=== PATIENT | male | born 1945 | race Caucasian/White ===

== ENCOUNTER 2017-02-24 08:34 | Outpatient (CLI) | payer MEDICARE, OTHER ==
--- NOTE | 2017-02-24 13:56 | Nuclear Medicine Prelim Report ---
Exam: NM MYOCARDIAL PERFUSION STR/RST IMPRESSION: 1. Partially fixed and partially reversible inferior wall perfusion defect. 2. Normal left ventricular ejection fraction of 59%. 3. Normal segmental and global wall motion. 4. Normal left ventricular cavity size, no change with stress. RADIA The call report notification system was initiated by Dr. Braeden Camarena at 13:45 hrs on 02/24/17. The above findings were discussed with Dr. Priest by Dr. Braeden Camarena at 13:55 hrs on 02/24/17. SITE ID: [id number]
--- NOTE | 2017-02-24 13:59 | Nuclear Medicine Report ---
EXAM: SINGLE-ISOTOPE EXERCISE STRESS TEST. SINGLE-ISOTOPE AND ONE-DAY REST/STRESS MYOCARDIAL PERFUSION SCAN S WITH TOMOGRAPHIC IMAGING, QUANTITATIVE ANALYSIS, WALL MOTION ANALYSIS AND CALCULATION OF EJECTION F RACTION. EXAM DATE: 02/24/2017 01:31 PM. CLINICAL HISTORY: CHEST PAIN. COMPARISON: None available. TECHNIQUE: A rest myocardial perfusion scan was done with tomography after the intravenous administration of 9.7 mCi Tc-99m sestamibi. After an appropriate delay, a treadmill exercise stress was performed according to department protoco l. The patient exercised for 5 minutes and 30 seconds. The maximum heart rate was 155 bpm, which was 104% of the maximum predicted heart rate of 149 bpm. At approximately peak heart rate, 43.6 mCi of Tc -99m sestamibi was injected for stress myocardial perfusion scan. Motion correction was applied when appropriate. Gated tomographic images were obtained for wall motion analysis and computation of left ventricular e jection fraction. FINDINGS: There is a moderate inferior wall perfusion defect extending to the inferior apex. There is mild reversibility around the margins. Wall motion analysis demonstrates no focal wall motion abnormality. The left ventricular end-diastolic volume is 110 cc. The left ventricular end-systolic volume is 45 c c. The left ventricular ejection fraction is calculated to be 59%. IMPRESSION: 1. Partially fixed and partially reversible inferior wall perfusion defect. 2. Normal left ventricular ejection fraction of 59%. 3. Normal segmental and global wall motion. 4. Normal left ventricular cavity size, no change with stress. RADIA The call report notification system was initiated by Dr. Braeden Camarena at 13:45 hrs on 02/24/17. The above findings were discussed with Dr. Priest by Dr. Braeden Camarena at 13:55 hrs on 02/24/17. Referring Provider Line: [phone] SITE ID: [id number]
[2017-02-24 16:41] VITALS: BP 142/92
--- NOTE | 2017-02-25 03:33 | CARDIAC PROCEDURE NOTE ---
DATE OF SERVICE: 02/24/2017 00:00:00 PRIMARY CARE PHYSICIAN: Misael Priest DO PROCEDURE: Myocardial perfusion treadmill. PROCEDURE SYMPTOMS: Chest pain. CARDIAC RISK FACTORS: Include age, hypertension, and hyperlipidemia. The patient had a 2011 treadmill test. CURRENT SYMPTOMATOLOGY: The patient feels well today. CLINICAL HISTORY: A 71-year-old male without known coronary artery disease. INITIAL RESTING VITAL SIGNS: BP 142/92, heart rate 82, height 73 inches, weight 245 pounds, BMI 32.3. PROCEDURE AND FINDINGS: The patient's identity and date were verified. Consent signed. The patient performed treadmill exercise using a Kobe protocol , completing 5 minutes, 30 seconds and completing an estimated workload of 7.0 metabolic equivalents. At peak exercise, Cardiolite radioactive tracer was injected intravenously. The patient exercised for another 60 seconds after receiving the tracer. Maximal blood pressure was 168/98 mmHg with a heart rate of 140 beats per minute or 94% of maximum heart rate for age. The blood pressure response to exercise was within normal limits. The patient stopped because of feeling short of air, his legs were tiring, and he had "mild" chest pain that resolved over 1-2 minutes. The resting ECG demonstrated normal sinus rhythm with a right bundle branch abnormality. He developed marked ST elevation and T-wave inversion with exercise in leads V3-5.The ST elevation resolved with rest. No ST depression was seen. There were occasional PAC and PVC ectopy. FINAL IMPRESSION 1. Positive electrocardiogram for ischemia in the setting of vasodilator stress. 2. Positive stress test for angina. 3. Occasional premature ventricular contractions and premature atrial contractions. DISCUSSION AND RECOMMENDATIONS: Await myocardial perfusion report. JOB #: [id number] [facility] JOB #:[id number] MTDReyna
== END 2017-02-24 08:35 | disposition home or self-care (01) ==
LOC: DI 08:34
PROVIDERS: ATTEND Family Medicine
DX: I25.9 Chronic ischemic heart disease, unspecified (principal); I20.9 Angina pectoris, unspecified; I10 Essential (primary) hypertension; E78.5 Hyperlipidemia, unspecified; J43.9 Emphysema, unspecified; J84.10 Pulmonary fibrosis, unspecified
CPT/HCPCS: 71020; 78452; 93017; A9500

== ENCOUNTER 2017-02-24 08:39 | Outpatient (CLI) | payer MEDICARE, OTHER ==
--- NOTE | 2017-02-24 12:26 | XRAY Report ---
TWO-VIEW CHEST: 02/24/2017 CLINICAL INDICATION: Chest pain. COMPARISON: 11/03/2011 FINDINGS: Frontal and lateral views of the chest demonstrate a normal cardiac silhouette. Emphysema and fibrosis are stable. No new consolidation, effusion, or pneumothorax is present. IMPRESSION: STABLE EMPHYSEMA AND FIBROSIS. JOB #: [id number] EXT JOB #:[id number]
--- NOTE | 2017-02-24 13:48 | XRAY Preliminary Report ---
Exam: XR CHEST 2 VIEW PA/LAT IMPRESSION: Normal 2-view chest radiography. [facility] SITE ID: [id number]
== END 2017-02-24 08:40 | disposition home or self-care (01) ==
LOC: DI 08:39
PROVIDERS: ATTEND Family Medicine
DX: J43.9 Emphysema, unspecified (principal); J84.10 Pulmonary fibrosis, unspecified
CPT/HCPCS: 71020

== ENCOUNTER 2017-08-31 08:00 | Outpatient (CLI) | payer MEDICARE, OTHER ==
[2017-08-31 12:44] LABS: BASOPHILS # (AUTO) 0.1 10^3/uL (0.0-0.1); BASOPHILS % (AUTO) 0.7 %; EOSINOPHILS # (AUTO) 0.4 10^3/uL (0.0-0.7); EOSINOPHILS % (AUTO) 5.1 %; LYMPHOCYTES # (AUTO) 1.7 10^3/uL (1.5-3.5); LYMPHOCYTES % (AUTO) 19.3 %; MEAN CORPUSCULAR HEMOGLOBIN 29.4 pg (27.0-31.0); MEAN CORPUSCULAR HGB CONC 33.5 g/dL (32.0-36.0); MEAN CORPUSCULAR VOLUME 87.7 fL (80.0-94.0); MONOCYTES # (AUTO) 0.6 10^3/uL (0.0-1.0); MONOCYTES % (AUTO) 7.3 %; NEUTROPHILS # (AUTO) 5.8 10^3/uL (1.5-6.6); NEUTROPHILS % (AUTO) 67.6 %; PLT - PLATELET COUNT 200 10^3/uL (130-450); RED BLOOD COUNT 4.76 10^6/uL (4.70-6.10); RED CELL DISTRIBUTION WIDTH 13.9 % (12.0-15.0); WHITE BLOOD COUNT 8.6 x10^3/uL (4.8-10.8)
[2017-08-31 12:48] LABS: ALBUMIN 3.9 g/dL (3.2-5.5); ALBUMIN/GLOBULIN RATIO 1.2 (1.0-2.2); ALKALINE PHOSPHATASE 59 IU/L (42-121); ALT ALANINE AMINOTRANSFERASE 35 IU/L (10-60); AST ASPARTATE AMINOTRANSFERASE 29 IU/L (10-42); BILIRUBIN,TOTAL 0.7 mg/dL (0.2-1.0); BUN - BLOOD UREA NITROGEN 22 mg/dL (6-20); CALCIUM 8.8 mg/dL (8.5-10.3); CARBON DIOXIDE - CO2 27 mmol/L (21-32); CHLORIDE 101 mmol/L (101-111); CHOL/HDL RATIO 2.7 (<5.0); CHOLESTEROL 119 mg/dL; CREATININE 0.7 mg/dL (0.6-1.2); GFR - MDRD 111 (>89); GLUCOSE 86 mg/dL (70-100); HDL CHOLESTEROL 44 mg/dL; LDL CHOLESTEROL,CALCULATED 56 mg/dL; LDL/HDL RATIO 1.3 (<3.6); SODIUM 136 mmol/L (135-145); TOTAL PROTEIN 7.1 g/dL (6.7-8.2); VLDL CHOLESTEROL 19 mg/dL
== END 2017-08-31 08:01 | disposition home or self-care (01) ==
LOC: LAB.WCP 08:00
PROVIDERS: ATTEND Family Medicine
DX: I25.10 Atherosclerotic heart disease of native coronary artery without angina pectoris (principal)
CPT/HCPCS: 36415; 80053; 80061; 83721; 85025

== ENCOUNTER 2017-12-14 07:33 | Outpatient (CLI) | payer MEDICARE, OTHER ==
[2017-12-14 10:31] LABS: BASOPHILS # (AUTO) 0.1 10^3/uL (0.0-0.1); BASOPHILS % (AUTO) 0.7 %; EOSINOPHILS # (AUTO) 0.3 10^3/uL (0.0-0.7); EOSINOPHILS % (AUTO) 4.4 %; HGB - HEMOGLOBIN 13.2 g/dL (14.0-18.0); LYMPHOCYTES # (AUTO) 1.2 10^3/uL (1.5-3.5); LYMPHOCYTES % (AUTO) 17.2 %; MEAN CORPUSCULAR HEMOGLOBIN 29.8 pg (27.0-31.0); MEAN CORPUSCULAR HGB CONC 33.7 g/dL (32.0-36.0); MEAN CORPUSCULAR VOLUME 88.3 fL (80.0-94.0); MEAN PLATELET VOLUME 8.1 fL (7.4-11.4); MONOCYTES # (AUTO) 0.6 10^3/uL (0.0-1.0); MONOCYTES % (AUTO) 8.5 %; NEUTROPHILS # (AUTO) 4.9 10^3/uL (1.5-6.6); NEUTROPHILS % (AUTO) 69.2 %; PLT - PLATELET COUNT 203 10^3/uL (130-450); RED BLOOD COUNT 4.44 10^6/uL (4.70-6.10); WHITE BLOOD COUNT 7.1 x10^3/uL (4.8-10.8)
[2017-12-14 10:51] LABS: CALCIUM 8.9 mg/dL (8.5-10.3); CREATININE 0.9 mg/dL (0.6-1.2)
== END 2017-12-14 07:34 | disposition home or self-care (01) ==
LOC: LAB.F 07:33
PROVIDERS: ATTEND Family Medicine
DX: R31.9 Hematuria, unspecified (principal)
CPT/HCPCS: 36415; 80048; 85025

== ENCOUNTER 2017-12-16 11:32 | Outpatient (CLI) | payer MEDICARE, OTHER ==
[2017-12-16] MEDS ORDERED: IOPAMIDOL-300 100 ML VIAL ONE (11:39)
[2017-12-16] MEDS ORDERED: IOPAMIDOL-300 100 ML VIAL IVP ONE (12:38)
--- NOTE | 2017-12-16 16:36 | CT Report ---
Reason: HEMATURIA Procedure Date: 12/16/2017 Accession Number: [id number] / [id number] Procedure: CT - IVP CPT Code: FULL RESULT: EXAM: CT ABDOMEN AND PELVIS WITHOUT AND WITH CONTRAST (CT IVP) EXAM DATE: 12/16/2017 12:49 PM. CLINICAL HISTORY: HEMATURIA. COMPARISONS: None. TECHNIQUE: Routine helical imaging was performed through the kidneys, ureters and bladder in the precontrast and post/delayed phase. IV Contrast: 100 cc Isovue-300. Reconstructions: Coronal and sagittal. In accordance with CT protocol optimization, one or more of the following dose reduction techniques were utilized for this exam: automated exposure control, adjustment of mA and/or KV based on patient size, or use of iterative reconstructive technique. FINDINGS: ABDOMEN: Right Kidney/Ureter: 4 mm calculus dependently in the renal pelvis and 2 mm calculus at the upper pole. Single ureter with normal anatomic course. No hydronephrosis. No urothelial lesions identified. No renal mass. Left Kidney/Ureter: Limited opacification of the proximal left ureter. No calculi. Single ureter with normal anatomic course. No hydronephrosis. No urothelial lesions identified. No renal mass. Bladder: 1.6 cm left bladder diverticulum is present. No obvious lesions or masses. No abnormal thickening seen. Lung Bases: Incompletely included lower lungs are grossly clear. Heart size is within normal limits. And completely visualize severe coronary artery calcifications. No basilar effusions. Liver: Unremarkable aside from a left hepatic lobe cyst and a tiny punctate likely cyst in the right hepatic lobe. Gallbladder/Bile Ducts: Small calcified gallstone layering dependently. Biliary tree is normal caliber. Spleen: Unremarkable. Pancreas: Unremarkable. Adrenal Glands: Unremarkable. Peritoneum/Mesentery/Bowel: No free intraabdominal fluid, free air, or collection. No intestinal obstruction or inflammation. Severe colonic diverticulosis is present, worse in the sigmoid. The appendix is within normal limits. Lymph nodes: No mesenteric, periportal, or retroperitoneal lymphadenopathy. Retroperitoneum: Abdominal aorta is nonaneurysmal. Portal vein is patent. Hepatic veins are patent. PELVIS: Prostate ispresent. No pelvic lymphadenopathy. Surgical clips in the right groin. No free intrapelvic fluid. Bones: No suspicious osseous lesions. IMPRESSION: No CT evidence for urothelial lesions. A couple nonobstructing right renal calculi. No ureteric calculi or hydronephrosis. Cholelithiasis. Partial visualization of severe coronary artery calcifications. RADIA
== END 2017-12-16 11:33 | disposition home or self-care (01) ==
LOC: DI 11:32
PROVIDERS: ATTEND Family Medicine
DX: R31.9 Hematuria, unspecified (principal); N20.0 Calculus of kidney; K80.20 Calculus of gallbladder without cholecystitis without obstruction
CPT/HCPCS: 74178; Q9967

== ENCOUNTER 2017-12-30 08:00 | Outpatient (CLI) | payer MEDICARE, OTHER | END 2017-12-30 08:01 | disposition home or self-care (01) | LOC: LAB.R 08:00 | PROVIDERS: ATTEND Family Medicine | DX: D64.9 Anemia, unspecified (principal) | CPT/HCPCS: 82270 ==

== ENCOUNTER 2018-07-20 07:49 | Outpatient (CLI) | payer MEDICARE, OTHER ==
[2018-07-20 11:32] LABS: BASOPHILS # (AUTO) 0.1 10^3/uL (0.0-0.1); BASOPHILS % (AUTO) 1.6 %; EOSINOPHILS # (AUTO) 0.2 10^3/uL (0.0-0.7); EOSINOPHILS % (AUTO) 3.9 %; LYMPHOCYTES # (AUTO) 1.4 10^3/uL (1.5-3.5); LYMPHOCYTES % (AUTO) 21.8 %; MEAN CORPUSCULAR HEMOGLOBIN 29.4 pg (27.0-31.0); MEAN CORPUSCULAR HGB CONC 33.1 g/dL (32.0-36.0); MEAN CORPUSCULAR VOLUME 88.6 fL (80.0-94.0); MEAN PLATELET VOLUME 8.8 fL (7.4-11.4); MONOCYTES # (AUTO) 0.5 10^3/uL (0.0-1.0); NEUTROPHILS % (AUTO) 64.7 %; PLT - PLATELET COUNT 183 10^3/uL (130-450); RED BLOOD COUNT 4.78 10^6/uL (4.70-6.10); RED CELL DISTRIBUTION WIDTH 13.9 % (12.0-15.0); WHITE BLOOD COUNT 6.2 x10^3/uL (4.8-10.8)
[2018-07-20 11:48] LABS: % IRON SATURATION 41 % (20-50); ALBUMIN 4.1 g/dL (3.2-5.5); ALBUMIN/GLOBULIN RATIO 1.6 (1.0-2.2); ALKALINE PHOSPHATASE 54 IU/L (42-121); ALT ALANINE AMINOTRANSFERASE 29 IU/L (10-60); AST ASPARTATE AMINOTRANSFERASE 31 IU/L (10-42); BILIRUBIN,TOTAL 0.9 mg/dL (0.2-1.0); BUN - BLOOD UREA NITROGEN 23 mg/dL (6-20); CALCIUM 8.9 mg/dL (8.5-10.3); CARBON DIOXIDE - CO2 27 mmol/L (21-32); CHLORIDE 103 mmol/L (101-111); CHOL/HDL RATIO 2.5 (<5.0); CHOLESTEROL 155 mg/dL; CREATININE 0.8 mg/dL (0.6-1.2); GFR - MDRD 95 (>89); GLUCOSE 106 mg/dL (70-100); HDL CHOLESTEROL 63 mg/dL; IRON 122 ug/dL (45-182); LDL CHOLESTEROL,CALCULATED 84 mg/dL; LDL/HDL RATIO 1.3 (<3.6); SODIUM 138 mmol/L (135-145); TOTAL IRON BINDING CAPACITY 300 ug/dL (250-450); TOTAL PROTEIN 6.7 g/dL (6.7-8.2); TRANSFERRIN 214 mg/dL (180-329); VLDL CHOLESTEROL 8 mg/dL
[2018-07-20 11:58] LABS: FERRITIN 276.8 ng/mL (23.9-336.2)
== END 2018-07-20 07:50 | disposition home or self-care (01) ==
LOC: LAB.F 07:49
PROVIDERS: ATTEND Family Medicine
DX: D64.9 Anemia, unspecified (principal); I25.10 Atherosclerotic heart disease of native coronary artery without angina pectoris
CPT/HCPCS: 36415; 80053; 80061; 82607; 82728; 82746; 83540; 83721; 84466; 85025

== ENCOUNTER 2020-02-06 07:00 | Outpatient (CLI) | payer MEDICARE, OTHER ==
[2020-02-06 12:16] LABS: BASOPHILS % (AUTO) 0.5 %; EOSINOPHILS # (AUTO) 0.3 10^3/uL (0.0-0.7); EOSINOPHILS % (AUTO) 4.1 %; HGB - HEMOGLOBIN 14.4 g/dL (14.0-18.0); LYMPHOCYTES # (AUTO) 1.4 10^3/uL (1.5-3.5); LYMPHOCYTES % (AUTO) 18.6 %; MEAN CORPUSCULAR HEMOGLOBIN 30.1 pg (27.0-31.0); MEAN CORPUSCULAR HGB CONC 32.7 g/dL (32.0-36.0); MEAN CORPUSCULAR VOLUME 92.3 fL (80.0-94.0); MEAN PLATELET VOLUME 10.9 fL (7.4-11.4); MONOCYTES # (AUTO) 0.7 10^3/uL (0.0-1.0); MONOCYTES % (AUTO) 8.8 %; NEUTROPHILS # (AUTO) 5.2 10^3/uL (1.5-6.6); NEUTROPHILS % (AUTO) 67.7 %; PLT - PLATELET COUNT 182 10^3/uL (130-450); RED BLOOD COUNT 4.78 10^6/uL (4.70-6.10); WHITE BLOOD COUNT 7.7 x10^3/uL (4.8-10.8)
[2020-02-06 12:30] LABS: ALBUMIN 4.1 g/dL (3.2-5.5); ALBUMIN/GLOBULIN RATIO 1.4 (1.0-2.2); ALKALINE PHOSPHATASE 57 IU/L (42-121); ALT ALANINE AMINOTRANSFERASE 24 IU/L (10-60); AST ASPARTATE AMINOTRANSFERASE 22 IU/L (10-42); BILIRUBIN,TOTAL 0.7 mg/dL (0.2-1.0); BUN - BLOOD UREA NITROGEN 26 mg/dL (6-20); CALCIUM 9.1 mg/dL (8.5-10.3); CARBON DIOXIDE - CO2 24 mmol/L (21-32); CHLORIDE 108 mmol/L (101-111); CHOL/HDL RATIO 3.2 (<5.0); CHOLESTEROL 161 mg/dL; CREATININE 0.6 mg/dL (0.6-1.2); GLUCOSE 96 mg/dL (70-100); HDL CHOLESTEROL 50 mg/dL; LDL CHOLESTEROL,CALCULATED 71 mg/dL; LDL/HDL RATIO 1.4 (<3.6); SODIUM 140 mmol/L (135-145); TOTAL PROTEIN 7.1 g/dL (6.7-8.2); URIC ACID 4.5 mg/dL (2.6-7.2); VLDL CHOLESTEROL 40 mg/dL
[2020-02-06 13:46] LABS: HEMOGLOBIN A1c% 5.7 % (4.27-6.07)
[2020-02-06 16:28] LABS: RHEUMATOID FACTOR NEGATIVE (Negative)
--- NOTE | 2020-02-06 17:24 | XRAY Report ---
PROCEDURE: Hip 1 View LT INDICATIONS: LEFT HIP PAIN TECHNIQUE: Mild right hip arthritis. Moderate left hip osteoarthritis. views of the hip were acquire d. COMPARISON: None FINDINGS: Bones: No fractures or dislocations. No suspicious bony lesions. The visualized pelvic ring appear s intact. Soft tissues: No suspicious soft tissue calcifications or masses. Surgical clips project over the r ight groin. IMPRESSION: Moderate left hip and mild right hip osteoarthritis. Reviewed by: Gema Pinzon MD, PhD on 02/06/2020 5:23 PM PST Approved by: Gema Pinzon MD, PhD on 02/06/2020 5:23 PM PST Station ID: [id number]
== END 2020-02-06 23:59 | disposition home or self-care (01) ==
LOC: DI.WCP 07:00
PROVIDERS: ATTEND Family Medicine
DX: M16.0 Bilateral primary osteoarthritis of hip (principal); I25.10 Atherosclerotic heart disease of native coronary artery without angina pectoris; G62.9 Polyneuropathy, unspecified; E66.9 Obesity, unspecified; M25.50 Pain in unspecified joint; E78.2 Mixed hyperlipidemia
CPT/HCPCS: 36415; 80053; 80061; 82607; 83036; 83721; 84443; 84550; 85025; 85651; 86140; 86200; 86430

== ENCOUNTER 2020-12-10 16:28 | Outpatient (CLI) | payer MEDICARE, OTHER | END 2020-12-10 16:29 | disposition home or self-care (01) | LOC: DI.N 16:28 | PROVIDERS: ATTEND Family Medicine | DX: M25.551 Pain in right hip (principal); M25.512 Pain in left shoulder; M79.602 Pain in left arm ==

== ENCOUNTER 2020-12-10 17:43 | Outpatient (CLI) | payer MEDICARE, OTHER ==
--- NOTE | 2020-12-10 19:46 | XRAY Report ---
PROCEDURE: Humerus LT INDICATIONS: ARM PAIN LEFT TECHNIQUE: 2 views of the humerus were acquired. COMPARISON: None FINDINGS: Bones: No fractures or dislocations. No suspicious bony lesions. Soft tissues: No suspicious soft tissue calcifications. IMPRESSION: No humeral fracture or dislocation. Reviewed by: Matthieu Meneses MD on 12/10/2020 7:45 PM PDT Approved by: Matthieu Meneses MD on 12/10/2020 7:45 PM PDT Station ID: [id number]
--- NOTE | 2020-12-10 19:46 | XRAY Report ---
PROCEDURE: Shoulder 2 View LT INDICATIONS: SHOULDER JOINT PAIN, LEFT TECHNIQUE: 2 views of the shoulder were acquired. COMPARISON: None. FINDINGS: Bones: No fractures or dislocations. Moderate acromioclavicular joint and glenohumeral joint osteoph ytic changes are seen. No suspicious bony lesions. Visualized ribs appear intact. Soft tissues: No suspicious soft tissue calcifications. IMPRESSION: Moderate left shoulder joint osteoarthritis. No acute shoulder fracture or dislocation. Reviewed by: Matthieu Meneses MD on 12/10/2020 7:44 PM PDT Approved by: Matthieu Meneses MD on 12/10/2020 7:44 PM PDT Station ID: [id number]
--- NOTE | 2020-12-10 19:47 | XRAY Report ---
PROCEDURE: Hip w/Pelvis 2-3V RT INDICATIONS: HIP PAIN RIGHT TECHNIQUE: AP pelvis with lateral view(s) of the right hip(s). COMPARISON: None. FINDINGS: Bones: No fractures or dislocations. Moderate right worse than left bilateral hip joint osteoarthri tis is seen. No evidence of avascular necrosis of femoral head. Pelvic ring appears intact. No suspi cious bony lesions. Soft tissues: The visualized bowel gas pattern is normal. No suspicious soft tissue calcifications. IMPRESSION: Moderate right worse than left bilateral hip joint osteoarthritis. No acute hip fracture or dislocation. No evidence of avascular necrosis. Reviewed by: Matthieu Meneses MD on 12/10/2020 7:45 PM PDT Approved by: Matthieu Meneses MD on 12/10/2020 7:45 PM PDT Station ID: [id number]
== END 2020-12-10 17:44 | disposition home or self-care (01) ==
LOC: DI 17:43
PROVIDERS: ATTEND Family Medicine
DX: M79.602 Pain in left arm (principal); M16.0 Bilateral primary osteoarthritis of hip; M19.012 Primary osteoarthritis, left shoulder

== ENCOUNTER 2021-01-26 14:13 | Outpatient (CLI) | payer MEDICARE, OTHER ==
--- NOTE | 2021-01-26 17:15 | XRAY Report ---
PROCEDURE: Lumbar Spine 2 View INDICATIONS: BACK PAIN,LUMBAR TECHNIQUE: 3 views of the lumbar spine were acquired. COMPARISON: None. FINDINGS: Bones: 5 [id number] vertebrae are present. There is normal bony alignment. There is mild conve x-right curvature of the lumbar spine. No vertebral body compression fractures. No suspicious bony l esions. Mild degenerative changes noted throughout the lumbar spine. Mild L4-L5 and L5-S1 facet arthr opathy. Soft tissues: Overlying bowel gas pattern is normal. No suspicious soft tissue calcifications. IMPRESSION: 1. Multilevel degenerative disc disease. 2. Multilevel facet atrophy. 3. No fracture. No acute osseous lesion. If there is continued clinical concern for pathology, then M RI should be considered for further evaluation. Reviewed by: Gema Pinzon MD, PhD on 01/26/2021 4:13 PM ELKE Approved by: Gema Pinzon MD, PhD on 01/26/2021 4:13 PM ELKE Station ID: [id number]
== END 2021-01-26 14:14 | disposition home or self-care (01) ==
LOC: DI 14:13
PROVIDERS: ATTEND Family Medicine
DX: M54.50 Low back pain, unspecified (principal); M51.37 Other intervertebral disc degeneration, lumbosacral region

== ENCOUNTER 2021-07-27 06:47 | Outpatient (CLI) | payer MEDICARE, OTHER ==
--- NOTE | 2021-07-27 08:31 | Ultrasound Report ---
PROCEDURE: Retroperitoneal Limited INDICATIONS: AAA TECHNIQUE: Real-time scanning was performed of the retroperitoneal organs, with image documentation. COMPARISON: None. FINDINGS: There is calcified plaque throughout the abdominal aorta. The proximal aorta measures 2.7 x 2.4 cm. The mid aorta measures 2.2 x 2.1 cm The distal aorta measures 3.0 x 3.0 cm. The right common iliac artery measures 1.4 x 1.5 cm. The left common iliac artery measures 1.5 x 1.6 cm. IMPRESSION: Ectasia of the distal infrarenal abdominal aorta measuring 3.0 x 3.0 cm. Reviewed by: Dong Malhotra on 07/27/2021 8:29 AM PDT Approved by: Dong Malhotra on 07/27/2021 8:29 AM PDT Station ID: [id number]
== END 2021-07-27 06:48 | disposition home or self-care (01) ==
LOC: DI 06:47
PROVIDERS: ATTEND Family Medicine
DX: I71.4 Abdominal aortic aneurysm, without rupture (principal)

== ENCOUNTER 2022-06-28 14:41 | Outpatient (CLI) | payer MEDICARE, OTHER ==
--- NOTE | 2022-06-28 18:09 | Ultrasound Report ---
PROCEDURE: Carotid Doppler Complete INDICATIONS: CAROTID ARTERY STENOSIS TECHNIQUE: Color and pulse Doppler interrogation was performed of both carotid systems, with image documentation and velocity measurements. COMPARISON: None. FINDINGS: Right side: Brachial blood pressure: 146/76 mm Hg. Common carotid artery peak systolic velocity: 76 cm/sec. Internal carotid artery peak systolic velocity: 145 cm/sec. Internal carotid artery end diastolic velocity: 50 cm/sec. External carotid artery peak systolic velocity: 62 cm/sec. ICA/CCA peak systolic ratio: 1.6 . Alexandre scale imaging description: Moderate atherosclerotic plaque Percent internal carotid artery stenosis: Greater than 50 . Vertebral artery: Not well visualized Left side: Brachial blood pressure: 154/84 mm Hg. Common carotid artery peak systolic velocity: 74 cm/sec. Internal carotid artery peak systolic velocity: 116 cm/sec. Internal carotid artery end diastolic velocity: 36 cm/sec. External carotid artery peak systolic velocity: Not well visualized ICA/CCA peak systolic ratio: 1.0 . Alexandre scale imaging description: Atherosclerotic plaque Percent internal carotid artery stenosis: Less than 50 . Vertebral artery: Flow direction is antegrade. IMPRESSION: 1. Ratios and waveforms are consistent with a 50-69% stenosis in the right proximal ICA and less than 2% stenosis on the left 2. Nonvisualized left ECA and right vertebral artery The estimate of stenosis included in the report of the imaging study was calculated using the NASCET method Reviewed by: Cholo Villegas MD on 06/28/2022 5:07 PM ELKE Approved by: Cholo Villegas MD on 06/28/2022 5:07 PM ELKE Station ID: [id number]
== END 2022-06-28 14:42 | disposition home or self-care (01) ==
LOC: DI 14:41
PROVIDERS: ATTEND Nurse Practitioner Family
DX: R55 Syncope and collapse (principal); I65.23 Occlusion and stenosis of bilateral carotid arteries
CPT/HCPCS: 93880

== ENCOUNTER 2022-07-02 07:31 | Outpatient (CLI) | payer MEDICARE, OTHER ==
[2022-07-02] MEDS ORDERED: iohexoL-300 100 ML VIAL ONE (07:39)
[2022-07-02 07:57] LABS: CREATININE 0.7 mg/dL (0.6-1.2)
[2022-07-02] MEDS ORDERED: iohexoL-300 100 ML VIAL IVP ONE (09:34)
--- NOTE | 2022-07-02 11:01 | CT Report ---
PROCEDURE: ANGIO HEAD W/WO INDICATIONS: CAROTID ARTERY STENOSIS CONTRAST: 80ml omni 300 TECHNIQUE: Precontrast 4.5 mm thick angled axial sections acquired from the foramen magnum to the vertex. Afte r the administration of intravenous contrast, 1 mm thick sections acquired through the [place] of [place] is. Postcontrast 4.5 mm thick sections then re-acquired from the foramen magnum to the vertex. 3-di mensional wtwjsld-sblkleejt-mksgnllgbi (MIP) and/or volume rendering reformats were acquired of the c entral intracranial vasculature. For radiation dose reduction, the following was used: automated ex posure control, adjustment of mA and/or kV according to patient size. COMPARISON: CTA neck 07/02/2022, ultrasound carotid 11/03/2021 FINDINGS: Image quality: Excellent. Anterior circulation: Intracranial internal carotid arteries are normal in size and flow. The flow within the paired anterior cerebral arteries is normal and symmetric. The flow within the middle cer ebral arteries is normal and symmetric. The anterior communicating artery is seen. No aneurysms are seen. Posterior circulation: There is a left vertebral artery dominance. Visualized portions of the verteb ral arteries demonstrate normal caliber, and join to form a normal appearing basilar artery. Flow wi thin the posterior cerebral arteries is normal and symmetric. No aneurysms are seen. The ventricular system and cortical sulci demonstrate atrophy, consistent for patient's stated age. There are areas of hypodensity in the periventricular and subcortical white matter. There is no acut e intra or extra-axial fluid collection. No acute hemorrhage, mass lesion or midline shift. Brainst em is unremarkable. Globes are symmetrical. Sinuses are aerated. Osseous structures are intact. IMPRESSION: 1. No acute intracranial process. 2. Mild to moderate atrophy and chronic microvascular ischemic changes. 3. No areas of hemodynamically significant stenosis, vascular occlusion or aneurysmal dilation within the anterior or posterior circulation. Reviewed by: Federica Johnston MD on 07/02/2022 11:00 AM PDT Approved by: Federica Johnston MD on 07/02/2022 11:00 AM PDT Station ID: [id number]
--- NOTE | 2022-07-02 11:17 | CT Report ---
PROCEDURE: ANGIO NECK W INDICATIONS: CAROTID ARTERY STENOSIS CONTRAST: 80ml omni 300 TECHNIQUE: After the administration of intravenous contrast, 1.5 mm axial sections acquired from the aortic arch to the [place] of [place]. Coronal 3-D maximum intensity projection (MIP) and/or volume rendering ref ormats were then performed. For radiation dose reduction, the following was used: automated exposur e control, adjustment of mA and/or kV according to patient size. COMPARISON: CTA head 07/02/2022, ultrasound carotid 11/03/2021 FINDINGS: Image quality: Motion is present during portions of the exam, limiting areas of fine detail evaluatio n. Carotid system: The great vessels demonstrate a conventional anatomy as they arise from the aortic a rch. The origins of the common carotid arteries appear patent. The common carotid arteries demonstr ate normal calibers and courses. The bifurcation regions appear normal bilaterally. There is prominent calcification at the origin of the left internal carotid artery. The greatest degr ee of stenosis is approximately 5 mm from the origin measuring approximately 68%. Immediately distal, there is a longer segment area of narrowing measuring approximately 1.1 cm demonstrating approximate ly 50% narrowing. Calcifications are also present at the origin and proximal aspect of the right inte rnal carotid artery. There is a long segment of stenosis measuring approximately 1.8 cm extending fro m the origin measuring approximately 55% stenosis. Posterior circulation: There is a left vertebral artery dominance. The origins of the vertebral hailey shravan aren't secured secondary to motion. The more superior portions of the vertebral arteries demonst rate normal course and caliber. They join to form a normal appearing basilar artery. Soft tissues: Visualized neck soft tissues demonstrate no suspicious abnormalities. The thyroid is normal in size and there are no incidental findings. Bones: No suspicious bony lesions. Visualized cervical spine appears normally aligned. IMPRESSION: Prominent calcification at the origin of the internal carotid arteries bilaterally appearing more pro minent on the left with greatest stenosis measuring 68%. Approximately 55% stenosis noted on the righ t. Origin of the vertebral arteries is obscured secondary to motion. The estimate of stenosis included in the report of the imaging study was calculated using the NASCET method CLINICAL RECOMMENDATION STATEMENTS: In patients <35 years with an ITN detected on CT, MRI, or extrathyroidal ultrasound, the Committee re commends further evaluation with dedicated thyroid ultrasound if the nodule is "e1 cm and has no susp icious imaging features, and if the patient has normal life expectancy. In patients "e35 years with an ITN detected on CT, MRI, or extrathyroidal ultrasound, the Committee r ecommends further evaluation with dedicated thyroid ultrasound if the nodule is "e1.5 cm and has no s uspicious imaging features, and if the patient has normal life expectancy. (ACR, 2014) Reviewed by: Federica Johnston MD on 07/02/2022 11:15 AM PDT Approved by: Federica Johnston MD on 07/02/2022 11:15 AM PDT Station ID: [id number]
== END 2022-07-02 07:32 | disposition home or self-care (01) ==
LOC: LAB 07:31
PROVIDERS: ATTEND Family Medicine
DX: I65.29 Occlusion and stenosis of unspecified carotid artery (principal); I65.23 Occlusion and stenosis of bilateral carotid arteries; G31.89 Other specified degenerative diseases of nervous system; I67.82 Cerebral ischemia
CPT/HCPCS: 36415; 70496; 70498; 82565; Q9967

== ENCOUNTER 2022-07-14 12:18 | Outpatient (CLI) | payer MEDICARE, OTHER | END 2022-07-14 12:19 | disposition home or self-care (01) | LOC: DI 12:18 | PROVIDERS: ATTEND Nurse Practitioner Family | DX: I65.29 Occlusion and stenosis of unspecified carotid artery (principal); R55 Syncope and collapse | CPT/HCPCS: 93306 ==

== ENCOUNTER 2022-08-11 13:12 | Outpatient (CLI) | payer MEDICARE, OTHER | END 2022-08-11 13:13 | disposition home or self-care (01) | LOC: MAC.INF 13:12 | PROVIDERS: ATTEND Nurse Practitioner Family | DX: I65.29 Occlusion and stenosis of unspecified carotid artery (principal); R55 Syncope and collapse | CPT/HCPCS: 93246 ==

== ENCOUNTER 2022-09-02 10:30 | Outpatient (CLI) | payer MEDICARE, OTHER | END 2022-09-02 10:31 | disposition home or self-care (01) | LOC: MAC.INF 10:30 | PROVIDERS: ATTEND Nurse Practitioner Family | DX: I45.4 Nonspecific intraventricular block (principal); I44.0 Atrioventricular block, first degree; I47.1 Supraventricular tachycardia; I45.89 Other specified conduction disorders; I49.1 Atrial premature depolarization; I49.3 Ventricular premature depolarization; I65.29 Occlusion and stenosis of unspecified carotid artery | CPT/HCPCS: 93248 ==

== ENCOUNTER 2023-04-11 09:42 | Emergency (ER) | payer MEDICARE, OTHER ==
[2023-04-11 09:59] LABS: BASOPHILS % (AUTO) 0.5 %; EOSINOPHILS # (AUTO) 0.2 10^3/uL (0.0-0.7); EOSINOPHILS % (AUTO) 2.2 %; HCT - HEMATOCRIT 44.1 % (42.0-52.0); HGB - HEMOGLOBIN 14.4 g/dL (14.0-18.0); LYMPHOCYTES # (AUTO) 1.4 10^3/uL (1.5-3.5); LYMPHOCYTES % (AUTO) 18.7 %; MEAN CORPUSCULAR HEMOGLOBIN 29.7 pg (27.0-31.0); MEAN CORPUSCULAR HGB CONC 32.7 g/dL (32.0-36.0); MEAN CORPUSCULAR VOLUME 90.9 fL (80.0-94.0); MONOCYTES # (AUTO) 0.6 10^3/uL (0.0-1.0); MONOCYTES % (AUTO) 8.5 %; NEUTROPHILS # (AUTO) 5.1 10^3/uL (1.5-6.6); NEUTROPHILS % (AUTO) 69.8 %; PLT - PLATELET COUNT 176 10^3/uL (130-450); RED BLOOD COUNT 4.85 10^6/uL (4.70-6.10); RED CELL DISTRIBUTION WIDTH 12.8 % (12.0-15.0); WHITE BLOOD COUNT 7.3 x10^3/uL (4.8-10.8)
[2023-04-11 10:18] LABS: ALBUMIN 4.3 g/dL (3.2-5.5); ALBUMIN/GLOBULIN RATIO 1.7 (1.0-2.2); BILIRUBIN,TOTAL 0.9 mg/dL (0.2-1.0); CALCIUM 9.1 mg/dL (8.5-10.3); CREATININE 0.7 mg/dL (0.6-1.3); POTASSIUM 4.1 mmol/L (3.5-4.5); TOTAL PROTEIN 6.8 g/dL (6.4-8.9)
[2023-04-11] MEDS ORDERED: SODIUM CHLORIDE 0.9% 1,000 ML IV STA (10:33)
--- NOTE | 2023-04-11 10:33 | ED Physician Documentation ---
PD HPI SYNCOPE - Stated complaint Stated Complaint: SYNCOPE - Chief complaint Chief Complaint: Neuro - History obtained from History obtained from: Patient - History of Present Illness Witnessed: Witnessed Timing - onset: Today Duration: Seconds Preceding symptoms: None Associated symptoms: Seizure Contributing factors: Other (felt light headed while driving up to the hospital) Injury occurred: None Similar symptoms before: Diagnosis (syncope of uncertain etiology), Work up / diagnostics (recent applications of rythm patch X 2 without findings and without episodes.) Recently seen: Clinic - Additional information Additional information: Juvenal Beltre is a 77-year-old male who has had a problem with syncope for the past 2 years. He has had multiple episodes. His initial episodes he had a warning for and now he does not seem to have a warning. Today he was in route to the [place] and felt some lightheadedness and dizziness and almost pulled over in the car. It was not until he got in and sat in the garcia chair that he had a syncopal episode. He has been evaluated with a rhythm patch and did not have episodes of syncope while he had the patch on and these did not demonstrate any abnormality of the rhythm. The patient feels normal now and has no deficits. He states this is typical for these episodes. PD PAST MEDICAL HISTORY - Past Medical History Past Medical History: Yes Cardiovascular: Hypertension, High cholesterol, Coronary artery disease Respiratory: None Endocrine/Autoimmune: None GI: None : None Psych: None Musculoskeletal: Fibromyalgia Derm: None - Past Surgical History Past Surgical History: Yes Ortho: Hip replacement - Present Medications Home Medications: Ambulatory Orders Medication Instructions Recorded Confirmed Ascorbic Acid [Vitamin C] 1 cap PO DAILY 04/11/23 04/11/23 Aspirin [Aspirin Regimen] 1 tab PO DAILY 04/11/23 04/11/23 Atorvastatin [Lipitor] 4 tab PO DAILY 04/11/23 04/11/23 Gabapentin [Neurontin] 1 cap PO DAILY 04/11/23 04/11/23 Gabapentin [Neurontin] 3 cap PO DAILY 04/11/23 04/11/23 Gabapentin [Neurontin] 5 cap PO DAILY 04/11/23 04/11/23 Latanoprost 0.005% Ophth Drops 1 drops EACHEYE DAILY 04/11/23 04/11/23 [Xalatan Ophth Drops] Metoprolol Succinate [Toprol Xl] 1 tab PO DAILY 04/11/23 04/11/23 Multivitamin 1 tab PO DAILY 04/11/23 04/11/23 Naproxen Sodium [Aleve] 1 tab PO DAILY 04/11/23 04/11/23 - Allergies Allergies/Adverse Reactions: Allergies Allergy/AdvReac Type Severity Reaction Status Date / Time No Known Drug Allergies Allergy Verified 04/11/23 09:52 - Social History Does the pt smoke?: No Smoking Status: Never smoker Does the pt drink ETOH?: Yes Does the pt have substance abuse?: No - POLST Patient has POLST: No PD ED PE NORMAL - Vitals Vital signs reviewed: Yes (hypertensive ) - General General: Alert and oriented X 3, No acute distress, Well developed/nourished - HEENT HEENT: Atraumatic, PERRL, EOMI, Ears normal - Neck Neck: Supple, no meningeal sign, No bony TTP - Cardiac Cardiac: RRR, No murmur - Respiratory Respiratory: No respiratory distress, Clear bilaterally - Abdomen Abdomen: Normal bowel sounds, Soft, Non tender, Non distended, No organomegaly - Back Back: No CVA TTP, No spinal TTP - Derm Derm: Normal color, Warm and dry, No rash - Extremities Extremities: No deformity, No edema - Neuro Neuro: Alert and oriented X 3, secretary specialist 2-12 intact, No motor deficit, No sensory deficit, Normal speech Eye Opening: Spontaneous Motor: Obeys Commands Verbal: Oriented GCS Score: 15 - Psych Psych: Normal mood, Normal affect Results - Vitals Vitals: Vital Signs - 24 hr 04/11/23 04/11/23 04/11/23 09:45 11:51 13:00 Temperature 36.1 C L Heart Rate 74 89 70 Respiratory 14 17 20 Rate Blood Pressure 149/71 H 149/93 H 187/95 H O2 Saturation 93 98 98 04/11/23 14:11 Temperature Heart Rate 71 Respiratory 17 Rate Blood Pressure 162/88 H O2 Saturation 98 Oxygen O2 Source Room air - Labs Labs: Laboratory Tests 04/11/23 04/11/23 04/11/23 09:53 09:53 11:20 WBC 7.3 RBC 4.85 Hgb 14.4 Hct 44.1 MCV 90.9 MCH 29.7 MCHC 32.7 RDW 12.8 Plt Count 176 MPV 10.0 Neut # (Auto) 5.1 Lymph # (Auto) 1.4 L [place] # (Auto) 0.6 Eos # (Auto) 0.2 Baso # (Auto) 0.0 Absolute Nucleated RBC 0.00 Nucleated RBC % 0.0 Sodium 141 Potassium 4.1 Chloride 104 Carbon Dioxide 26 Anion Gap 11.0 BUN 17 Creatinine 0.7 Estimated GFR (MDRD) 109 Glucose 111 H Calcium 9.1 Total Bilirubin 0.9 AST 33 ALT 44 Alkaline Phosphatase 60 Total Protein 6.8 Albumin 4.3 Globulin 2.5 Albumin/Globulin Ratio 1.7 Lipase 16 Random Cortisol 31.3 Urine Color YELLOW Urine Clarity CLEAR Urine pH 7.0 Ur Specific [place] 1.015 Urine Protein NEGATIVE Urine Glucose (UA) NEGATIVE Urine Ketones NEGATIVE Urine Occult Blood NEGATIVE Urine Nitrite NEGATIVE Urine Bilirubin NEGATIVE Urine Urobilinogen 1 (NORMAL) Ur Leukocyte Esterase NEGATIVE Ur Microscopic Review NOT INDICATED Urine Culture Comments NOT INDICATED - Rads (name of study) CT head Relevant Findings:: Prelim report reviewed (Impression: 1. No acute intracranial process. Mild to moderate atrophy and chronic microvascular ischemic changes.), EMP independent interpretation of test, See rad report Procedures - IVC sono (time) 1030 Bedside IVC sono: IVC measures (cm) (0.9), IVC collapsed c insp (cm) (complete), Dehydration (est 2 liter deficit) PD Medical Decision Making - ED course Complexity details: reviewed old records, reviewed results, re-evaluated patient, considered differential, d/w patient Reviewed Lab Results: We reviewed a complete blood count showing a normal white blood cell count normal hemoglobin hematocrit and platelets chemistries were equally normal with normal electrolytes normal kidney and liver function. A random cortisol was 31.3 urinalysis is unremarkable. I interpreted these studies to indicate what ever process the patient is having has not been overwhelming to him and is not indicated by any of the laboratory work. ED course: 77-year-old male with a history of recurrent syncope has had an episode of syncope this morning his prodromal symptoms today were episodes of dizziness and lightheadedness on the way to the [place]. Today we were able to evaluate the patient with POCUS and found a small collapsing inferior vena cava consistent with dehydration of 2 L. The patient is administered a liter of saline. The patient has had numerous syncopal episodes and he does not give a history consistent with these all being related to dehydration. I encouraged the patient to follow-up with his biometrics specialist as planned for further evaluation. During monitoring here the patient had no episodes of ectopy. Departure - Departure Disposition: 01 Home, Self Care Clinical Impression: Volume depletion Syncope Qualifiers: Syncope type: unspecified Qualified Code(s): R55 - Syncope and collapse Condition: Stable Instructions: ED Dehydration, ED Syncope Vasovagal Follow-Up: Ilda Beatty ARNP [Primary Care Provider] - Comments: Juvenal, today we found you were volume depleted and enough to cause symptoms. We did not find abnormal heart rhythm. A follow up with cardiology for further monitoring is indicated. In the mean time hydrate an additional quart above your usual today as we gave on liter by vein and a deficit of one liter is still present. Discharge Date/Time: 04/11/23 14:15
[2023-04-11 11:59] LABS: BILIRUBIN,URINE NEGATIVE (NEGATIVE); GLUCOSE, URINE (UA) NEGATIVE (NEGATIVE); KETONES,URINE (UA) NEGATIVE (NEGATIVE); LEUKOCYTE ESTERASE, URINE NEGATIVE (NEGATIVE); NITRITE,URINE NEGATIVE (NEGATIVE); OCCULT BLOOD,URINE NEGATIVE (NEGATIVE); PROTEIN,URINE NEGATIVE (NEGATIVE); UROBILINOGEN,URINE 1 (NORMAL) E.U./dL (NORMAL)
[2023-04-11 12:06] VITALS: O2SAT 98
[2023-04-11 12:06] LABS: CLARITY,URINE CLEAR (CLEAR)
--- NOTE | 2023-04-11 12:37 | CT Report ---
PROCEDURE: Head WO INDICATIONS: syncope, head pain TECHNIQUE: Noncontrast 4.5 mm thick angled axial sections acquired from the foramen magnum to the vertex. For r adiation dose reduction, the following was used: automated exposure control, adjustment of mA and/or kV according to patient size. COMPARISON: CTA head 07/02/2022 FINDINGS: Image quality: Excellent. The ventricular system and cortical sulci demonstrate atrophy, consistent for patient's stated age. There are areas of hypodensity in the periventricular and subcortical white matter. There is no acut e intra or extra-axial fluid collection. No acute hemorrhage, mass lesion or midline shift. Brainst em is unremarkable. Globes are symmetrical. Sinuses are aerated. Osseous structures are intact. IMPRESSION: 1. No acute intracranial process. 2. Mild to moderate atrophy and chronic microvascular ischemic changes. Moderate Reviewed by: Federica Johnston MD on 04/11/2023 12:36 PM PST Approved by: Federica Johnston MD on 04/11/2023 12:36 PM PST Station ID: [id number]
[2023-04-11 14:17] VITALS: BP 162/88
== END 2023-04-11 14:15 | disposition home or self-care (01) ==
LOC: EDUNIT# → ED 09:42
DX: R55 Syncope and collapse (principal); E86.0 Dehydration; E86.9 Volume depletion, unspecified; I10 Essential (primary) hypertension
CPT/HCPCS: 36415; 80053; 81001; 81003; 82533; 83690; 85025; 87086; 93005; 99283; 99284

== ENCOUNTER 2023-05-02 14:27 | Outpatient (CLI) | payer MEDICARE, OTHER ==
--- NOTE | 2023-05-02 18:06 | Ultrasound Report ---
PROCEDURE: Aorta Duplex Complete INDICATIONS: AORTIC ATHEROSCLEROSIS, CAROTID ARTERY STENOSIS TECHNIQUE: Color and pulse Doppler interrogation was performed of the aorta and iliac arterial systems, with adrianne ge documentation. COMPARISON: CT IVP dated 12/16/2017. FINDINGS: Aorta: 76 cm/sec, with monophasic flow. Right lower extremity: Proximal common iliac artery: 301cm/sec, with biphasic flow. Distal common iliac artery: 182 cm/sec, with monophasic flow. Proximal external iliac artery: 93 cm/sec, with biphasic flow. Distal external iliac artery: 178 cm/sec, with biphasic flow. Common femoral artery: 77 cm/sec, with triphasic flow. Alexandre-scale imaging description: Findings suggest the possibility of distal aortic stenotic disease a nd significant common iliac stenotic disease. Left lower extremity: Proximal common iliac artery: 132 cm/sec, with biphasic flow. Distal common iliac artery: 104 cm/sec, with biphasic flow. Proximal external iliac artery: 112 cm/sec, with biphasic flow. Distal external iliac artery: 194 cm/sec, with triphasic flow. Common femoral artery: 52 cm/sec, with triphasic flow. Alexandre-scale imaging description: No evidence of significant right iliac stenotic disease. IMPRESSION: 1. Findings suggest possible hemodynamically significant distal aortic stenotic disease and right com mon iliac stenotic disease. Comment: Consider CT angiography or MR angiography of the aorta and lower extremity arterial vessels for confirmation, if this patient has clinically significant symptomatology. Reviewed by: Liban Junior MD on 05/02/2023 6:05 PM PST Approved by: Liban Junior MD on 05/02/2023 6:05 PM PST Station ID: [id number]
== END 2023-05-02 14:28 | disposition home or self-care (01) ==
LOC: DI 14:27
PROVIDERS: ATTEND Nurse Practitioner Family
DX: I70.0 Atherosclerosis of aorta (principal); I10 Essential (primary) hypertension; R55 Syncope and collapse; I65.29 Occlusion and stenosis of unspecified carotid artery
CPT/HCPCS: 93978

== ENCOUNTER 2023-05-04 16:17 | Outpatient (CLI) | payer MEDICARE, OTHER | END 2023-05-04 16:18 | disposition short-term general hospital (02) | LOC: EMS 16:17 | DX: I49.9 Cardiac arrhythmia, unspecified (principal); R06.00 Dyspnea, unspecified; R11.0 Nausea; R61 Generalized hyperhidrosis | CPT/HCPCS: A0425; A0427 ==